=== PATIENT | female | born 1960 | race Two or more races ===

== ENCOUNTER → 2024-08-14 | Outpatient (CLI) | payer MEDICAID, SELFPAY ==
[2024-08-13 09:45] LABS: Basophils # (Auto) 0.1 Thou/mm3 (0.0-0.2); Basophils % (Auto) 1 % (0-2.5); Eosinophils # (Auto) 0.1 Thou/mm3 (0.0-0.5); Eosinophils % (Auto) 1 % (0-10); Hematocrit 37.9 % (36.0-46.0); Hemoglobin 13.3 g/dL (12.0-16.0); Immature Granulocytes % (Auto) 0 % (0-0); Immature Granulocytes Auto 0.02 Thou/mm3 (0.00-0.00); Lymphocytes # (Auto) 2.4 Thou/mm3 (1.0-4.8); Lymphocytes % (Auto) 39 % (10-50); Mean Corpuscular HGB Conc 35.1 g/dl (31.0-37.0); Mean Corpuscular Hemoglobin 31.4 pg (25.0-35.0); Mean Corpuscular Volume 90 fL (80-100); Monocytes # (Auto) 0.5 Thou/mm3 (0.0-0.8); Monocytes % (Auto) 8 % (0-12); Neutrophils # (Auto) 3.1 Thou/mm3 (1.8-7.7); Neutrophils % (Auto) 51 % (37-80); Nucleated Red Blood Cell % 0 /100 WBC (0); Platelet Count 174 Thou/mm3 (140-440); RDW Standard Deviation 43.1 fL (36.4-46.3); Red Blood Count 4.23 Miln/mm3 (4.00-5.20); White Blood Count 6.1 Thou/mm3 (3.6-11.0)
[2024-08-13 09:58] LABS: Partial Thromboplastin Time 27.3 Seconds (22.0-36.0); Prothrombin Time 11.4 Seconds (9.0-12.2)
--- NOTE | 2024-08-14 08:30 | XR_ITS ---
Examination: Ultrasound-guided fine needle percutaneous aspiration parathyroid nodule, left. Thyroid sonography, limited Exam date and time: August 14, 2024 0923 hours INDICATIONS: History left parathyroid nodule. Technique: A timeout was completed verifying correct patient, procedure, site, positioning and special equipment if applicable. The patient was placed in supine position for the thyroid fine needle percutaneous aspiration The patient's left neck neck was prepped and draped in sterile fashion. Maximum barrier sterile technique, hand hygiene, ultrasound sterile technique. 1% lidocaine utilized for local anesthesia Multiple fine needle aspirations were performed and multiple thyroid specimens placed in preservative according to the [facility] protocol. Specimens appears satisfactory. The attending radiologist was present for the entire procedure. Estimated blood loss 3 cc. The patient tolerated the procedure well and there were no complications. Impression: Successful ultrasound-guided fine-needle percutaneous aspiration left parathyroid nodule
== END | disposition home or self-care (01) ==
LOC: SDIM 08:40 → SIRX 09:29
PROVIDERS: Radiology Diagnostic Radiology; PCP Nurse Practitioner Family; Referring Provider Nurse Practitioner Family; Visit Provider Nurse Practitioner Family
DX: E04.1 Nontoxic single thyroid nodule (principal); Z01.812 Encounter for preprocedural laboratory examination
CPT/HCPCS: 10005; 36415; 85025; 85610; 85730

== ENCOUNTER 2024-10-25 08:27 | Outpatient (RCR) | payer MEDICAID, SELFPAY ==
--- NOTE | 2024-10-25 09:00 | XR_ITS ---
Examination: Nuclear medicine parathyroid scan Date and time: October 25, 20242046 hours INDICATIONS: Ultrasound soft tissue neck January 24, 2024 3.6 cm nodule below and separate from the left lobe of the thyroid suspicious for parathyroid adenoma TECHNIQUE AND FINDINGS: Intravenous ministration 25.6 mCi technetium 99m sestamibi Anterior pinhole and chest images obtained before hours Indications increased isotope accumulation mass below the left thyroid lobe corresponding to the mass on the ultrasound soft tissue January 24, 2024 IMPRESSION: Positive for left neck parathyroid adenoma
== END 2024-10-30 23:59 | disposition home or self-care (01) ==
LOC: SNUC 08:27
PROVIDERS: PCP Nurse Practitioner Family; Referring Provider Nurse Practitioner Family; Visit Provider Nurse Practitioner Family
DX: D36.7 Benign neoplasm of other specified sites (principal)
CPT/HCPCS: 78070; A9500